=== PATIENT | male | born 1965 | race Caucasian/White ===

== ENCOUNTER 2016-10-18 15:04 | Emergency (ER) | payer SELFPAY ==
--- NOTE | 2016-10-18 15:18 | ER Document Report ---
ED Medical Screen (RME) - General Chief Complaint: Numbness of Arm Stated Complaint: POSSIBLE STROKE Time Seen by Provider: 10/18/16 15:15 Notes: Patient states that he feels "something is not right". Patient states that he smokes crack and drinks [place] every day. He states that he smokes "lots of crack". He says he does this because he is an addict. He states starting 3 days ago he began to have headaches and bilateral arm numbness as well as weakness and trouble walking. He states he feels that he may have had a stroke because her family history of strokes. Been living out of a hotel for the last 5-6 weeks. He has been very nauseous but has not vomited. TRAVEL OUTSIDE OF THE [place] IN LAST 30 DAYS: No Past Medical History Renal/ Medical History: Denies: Hx Peritoneal Dialysis Physical Exam - Vital signs Vitals: Temp Pulse Resp BP Pulse Ox 98 F 89 20 147/100 H 96 10/18/16 15:05 10/18/16 15:05 10/18/16 15:05 10/18/16 15:05 10/18/16 15:05 Course - Vital Signs Vital signs: Temp Pulse Resp BP Pulse Ox 98 F 89 20 147/100 H 96 10/18/16 15:05 10/18/16 15:05 10/18/16 15:05 10/18/16 15:05 10/18/16 15:05
--- NOTE | 2016-10-18 15:57 | RADIOLOGY REPORT (SQ) ---
EXAM DESCRIPTION: CT HEAD WITHOUT COMPLETED DATE/TIME: 10/18/2016 3:27 pm REASON FOR STUDY: harris/arm numbness COMPARISON: None. TECHNIQUE: Axial images acquired through the brain without intravenous contrast. Images reviewed wi th bone, brain and subdural windows. Images stored on PACS. All CT scanners at this facility use dose modulation, iterative reconstruction, and/or weight based d osing when appropriate to reduce radiation dose to as low as reasonably achievable (ALARA). [facility]: Dose Right [facility]: CareDose [facility]: Dose Right [facility]: Teradose 4D [facility]: Smart Ium RADIATION DOSE: Up-to-date CT equipment and radiation dose reduction techniques were employed. CTDIv ol: 62.8 mGy. DLP: 1163 mGy-cm. mGy. LIMITATIONS: None. FINDINGS: VENTRICLES: Normal size and contour. CEREBRUM: No masses. No hemorrhage. No midline shift. Normal bonilla/white matter differentiation. N o evidence for acute infarction. CEREBELLUM: No masses. No hemorrhage. No alteration of density. No evidence for acute infarction. EXTRAAXIAL SPACES: No fluid collections. No masses. ORBITS AND GLOBE: No intra- or extraconal masses. Normal contour of globe without masses. CALVARIUM: No fracture. PARANASAL SINUSES: No fluid or mucosal thickening. SOFT TISSUES: No mass or hematoma. OTHER: No other significant finding. IMPRESSION: NORMAL BRAIN CT WITHOUT CONTRAST. TECHNICAL DOCUMENTATION: JOB ID: [id number] Quality ID # [id number]: Final reports with documentation of one or more dose reduction techniques (e.g., Au tomated exposure control, adjustment of the mA and/or kV according to patient size, use of iterative reconstruction technique) 2010 [employer]- All Rights Reserved
[2016-10-18 16:02] LABS: ABSOLUTE BASOPHILS # (AUTO) 0.1 10^3/uL (0.0-0.2); ABSOLUTE EOSINOPHILS # (AUTO) 0.2 10^3/uL (0.0-0.6); ABSOLUTE LYMPHOCYTES (AUTO) 2.3 10^3/uL (0.5-4.7); ABSOLUTE MONOCYTES (AUTO) 0.8 10^3/uL (0.1-1.4); ABSOLUTE NEUT (AUTO) 5.9 10^3/uL (1.7-8.2); BASOPHILS % (AUTO) 0.8 % (0-2); EOSINOPHILS % (AUTO) 2.3 % (0-6); HEMATOCRIT 47.4 % (37.9-51.0); HEMOGLOBIN 15.7 g/dL (13.5-17.0); HGB HCT DIFFERENCE -0.3; LYMPHOCYTES % (AUTO) 24.4 % (13-45); MEAN CORPUSCULAR HEMOGLOBIN 28.4 pg (27.0-33.4); MEAN CORPUSCULAR HGB CONC 33.3 g/dL (32.0-36.0); MEAN CORPUSCULAR VOLUME 85 fl (80-97); RED BLOOD COUNT 5.55 10^6/uL (4.35-5.55); RED CELL DISTRIBUTION WIDTH 15.3 % (11.5-14.0); SEGMENTED NEUTROPHILS % (AUTO) 63.5 % (42-78); WHITE BLOOD COUNT 9.3 10^3/uL (4.0-10.5)
[2016-10-18 16:15] LABS: APPEARANCE,URINE CLEAR; BILIRUBIN,URINE NEGATIVE (NEGATIVE); CALCIUM OXALATE CRYSTALS,URINE MODERATE /HPF; GLUCOSE, URINE NEGATIVE (NEGATIVE); KETONES,URINE NEGATIVE (NEGATIVE); LEUKOCYTE ESTERASE,URINE NEGATIVE (NEGATIVE); NITRITE,URINE NEGATIVE (NEGATIVE); PROTEIN,URINE 100 mg/dL (NEGATIVE); URINE SPECIFIC GRAVITY 1.013; UROBILINOGEN,URINE NEGATIVE mg/dL (<2.0)
[2016-10-18 16:22] LABS: ALANINE AMINOTRANSFERASE 50 U/L (21-72); ALBUMIN 4.2 g/dL (3.5-5.0); ALKALINE PHOSPHATASE 110 U/L (38-126); ANION GAP 9 (5-19); ASPARTATE AMINO TRANSFERASE 62 U/L (17-59); BILIRUBIN,DIRECT 0.3 mg/dL (0.0-0.4); BILIRUBIN,TOTAL 0.4 mg/dL (0.2-1.3); BLOOD UREA NITROGEN 11 mg/dL (7-20); CALCIUM 9.8 mg/dL (8.4-10.2); CARBON DIOXIDE 29 mmol/L (22-30); CHLORIDE 100 mmol/L (98-107); CREATININE RESULT 1.63 mg/dL (0.52-1.25); GLUCOSE 110 mg/dL (75-110); POTASSIUM 4.1 mmol/L (3.6-5.0); SODIUM 137.5 mmol/L (137-145); TOTAL PROTEIN 7.4 g/dL (6.3-8.2)
[2016-10-18 16:25] LABS: ALCOHOL < 10 mg/dL (NONE DETECTED)
[2016-10-18 16:28] LABS: URINE BARBITURATES SCREEN NEGATIVE; URINE METHADONE SCREEN NEGATIVE; URINE OPIATES LOW NEGATIVE; URINE PHENCYCLIDINE SCREEN NEGATIVE
--- NOTE | 2016-10-18 18:12 | ER Document Report ---
ED General - General Chief Complaint: Numbness of Arm Stated Complaint: POSSIBLE STROKE Time Seen by Provider: 10/18/16 15:15 Mode of Arrival: Ambulatory Information source: Patient Notes: This is a 51-year-old man with no prior medical problems who presents to the emergency room with concerns for stroke. The patient states that he has had a headache for the past week associated with some vertiginous type symptoms. Patient denies any speech problems, focal motor weakness. He does state he is very sleepy now because he has been doing crack every day for the past month. Patient states he does have a history of drug use and relapsed approximately 5 months ago. He is previously gone to Narcotics Anonymous in morning at [facility] ( at about an hour away) but is not ready to stop so he has not been back. Currently, he denies any focal weakness, slurred speech, chest pain or abdominal pain. TRAVEL OUTSIDE OF THE [place] IN LAST 30 DAYS: No - HPI Onset: Last week Onset/Duration: Gradual Quality of pain: No pain Severity: None Pain Level: Denies Associated symptoms: denies: Chest pain, Fever, Shortness of breath Exacerbated by: Denies Relieved by: Denies Similar symptoms previously: No Recently seen / treated by doctor: No - Related Data Allergies/Adverse Reactions: No Known Allergies Allergy (Verified 10/18/16 15:21) Past Medical History - General Information source: Patient - Social History Smoking Status: Never Smoker Cigarette use (# per day): No Chew tobacco use (# tins/day): No Frequency of alcohol use: Rare Drug Abuse: Cocaine, Methamphetamine Lives with: Alone Family History: Reviewed & Not Pertinent Patient has suicidal ideation: No Patient has homicidal ideation: No - Past Medical History Cardiac Medical History: Reports: None Pulmonary Medical History: Reports: None EENT Medical History: Reports: None Neurological Medical History: Reports: None Endocrine Medical History: Reports: None Renal/ Medical History: Reports: None. Denies: Hx Peritoneal Dialysis Malignancy Medical History: Reports None GI Medical History: Reports: None Musculoskeltal Medical History: Reports Other Skin Medical History: Reports None - Arthritis cervical spine Psychiatric Medical History: Reports: None Surgical Hx: Negative Past Surgical History: Reports: Other - Cervical spine surgery - Immunizations Hx Diphtheria, Pertussis, Tetanus Vaccination: Yes Review of Systems - Review of Systems Constitutional: denies: Chills, Fever EENT: No symptoms reported Cardiovascular: No symptoms reported Respiratory: No symptoms reported Gastrointestinal: No symptoms reported Genitourinary: No symptoms reported Male Genitourinary: No symptoms reported Musculoskeletal: No symptoms reported Skin: No symptoms reported Hematologic/Lymphatic: No symptoms reported Neurological/Psychological: See HPI Physical Exam - Vital signs Vitals: Temp Pulse Resp BP Pulse Ox 98 F 89 20 147/100 H 96 10/18/16 15:05 10/18/16 15:05 10/18/16 15:05 10/18/16 15:05 10/18/16 15:05 Notes: Physical exam: GENERAL: 51-year-old man, alert and oriented 3, resting comfortably in stretcher, no distress. His initial blood pressure was elevated at 150/113. HEAD: Atraumatic, normocephalic. EYES: Pupils equal round and reactive to light, extraocular movements intact, sclera anicteric, conjunctiva are normal. ENT: TMs normal, nares patent, oropharynx clear without exudates. Moist mucous membranes. NECK: Normal range of motion, supple without lymphadenopathy or JVD. LUNGS: Breath sounds clear to auscultation bilaterally and equal. No wheezes rales or rhonchi. HEART: Regular rate and rhythm without murmurs, rubs or gallops. ABDOMEN: Soft, normoactive bowel sounds. No tenderness to palpation. No guarding, no rebound. No masses appreciated. EXTREMITIES: Normal range of motion, no pitting or edema. No clubbing or cyanosis. NEUROLOGICAL: Cranial nerves II through XII grossly intact. Motor is 5/5, sensory grossly intact, cerebellar (finger to nose) is goo patient knows the month and age,d. normal speech, normal gait. He is able to perform commands ( close eyes and face) simultaneously, he has got good horizontal gaze, visual andrews are intact, there is no motor drift in arm or leg, picture description, object naming and sentence reading is very good, there is no dysarthria and his speech is clear. NIH is 0. PSYCH: Normal mood, normal affect. SKIN: Warm, Dry, normal turgor, no rashes or lesions noted. Course - Re-evaluation Re-evalutation: 10/18/16 19:54 I had a long discussion with the patient. He does have some red blood cells in the urine and his creatinine is slightly elevated I discussed this with him. I am concerned that his blood pressures a little elevated as well. Patient states he does not have a history of an elevated blood pressure and that his blood pressure was normal 5 months ago when he had his cervical disc surgery and [place]. I have reassured him that he does not have a stroke by physical exam or CT scan today. However, I am very concerned that he is at risk given his daily use of crack. I advised him strongly to stop and I gave him a number of reasons why (stroke, heart attack, sudden , acute renal failure) and he seems to understand this. He states he is just not ready to stop. I have advised him to strongly consider and think about it. I will give him a referral to [facility]. I will give him the [facility] for [facility] so that he can have a repeat blood pressure check. However, I think the treatment for the blood pressure at this time should be cessation of his crack use. I have made this clear. - Vital Signs Vital signs: Temp Pulse Resp BP Pulse Ox 98.2 F 72 15 159/105 H 98 10/18/16 17:40 10/18/16 17:40 10/18/16 17:40 10/18/16 17:40 10/18/16 17:40 - Laboratory Result Diagrams: 10/18/16 15:30 10/18/16 15:30 Laboratory results interpreted by me: 10/18/16 10/18/16 10/18/16 15:30 15:30 15:30 RDW 15.3 H Creatinine 1.63 H Est GFR ( Amer) 54 L Est GFR (Non-Af Amer) 45 L AST 62 H Urine Protein 100 H Urine Blood MODERATE H - Diagnostic Test Radiology reviewed: Image reviewed, Reports reviewed - Head CT shows no stroke or bleed. - EKG Interpretation by Me Rate: Normal Rhythm: NSR - EKG shows normal sinus rhythm with a ventricular rate of 75, no acute ST-T wave changes. Discharge - Discharge Clinical Impression: Substance abuse, Hypertension secondary to above Condition: Stable Disposition: HOME, SELF-CARE Additional Instructions: Recommendations: As we discussed, I would like you to stop using crack: It increases the risk of acute stroke, bleeding into the brain, heart attack and kidney failure. As we discussed, there was some red blood cells in the urine and one of your kidney test was slightly elevated suggesting that your crack use may be starting to affect her kidneys. Additionally, your blood pressure was elevated and this most likely is caused by the crack use. So overall, even though the CT scan and your neurologic exam showed no evidence of stroke, you are at significant risk if you continue to use crack. I would like you to follow-up with [facility] across the [facility] from the hospital. [facility] [address] [place] Crisis Response: [phone] Outpatient services: [phone] Accepts self pay Referrals: [facility] [Provider Group] - Follow up as needed (This is the number for the [facility] clinic: I would like you to call and get a repeat blood pressure check in the next few days. If you are unable to get into the clinic, you can return to the emergency room for repeat blood pressure check.)
[2016-10-18 20:17] VITALS: BP 159/105
--- NOTE | 2016-10-19 16:24 | EKG REPORT ---
SEVERITY:- ABNORMAL ECG - SINUS RHYTHM LEFT VENTRICULAR HYPERTROPHY BORDERLINE PROLONGED QT INTERVAL : Confirmed by: Melany Spangler MD 19-Oct-2016 16:24:00
== END 2016-10-18 20:17 | disposition home or self-care (01) ==
LOC: ER 15:04
DX: F19.10 Other psychoactive substance abuse, uncomplicated (principal); I15.9 Secondary hypertension, unspecified; R20.0 Anesthesia of skin; R51 Headache
CPT/HCPCS: 36415; 70450; 80053; 80307; 81001; 85025; 93005; 93010; 99284